=== PATIENT | male | born 1955 | race Caucasian/White ===

== ENCOUNTER 2019-05-26 13:54 | Inpatient (IN) ==
[2019-05-26] MEDS ORDERED: 0.9 % SODIUM CHLORIDE 1,000 ML IV ONE (14:28)
[2019-05-26] MEDS ORDERED: methylPREDNISolone SOD SUCC 125 MG/2 ML VIAL IV ONE (14:28)
[2019-05-26] MEDS ORDERED: ALBUTEROL SULFATE 200 PUFF INHALER INH PRN (14:30)
--- NOTE | 2019-05-26 14:57 | XRay Report ---
INDICATION: SOB TECHNIQUE: AP chest x-ray COMPARISON: Previous chest x-rays dated 11/24/2018, 12/01/2017. Previous chest CT scan dated 04/22/2015 FINDINGS: Lungs:Severe emphysema. Innumerable small calcifications consistent with old granulomatous disease. No new pulmonary parenchymal infiltrate or mass. No significant interval change Heart, vascular:No significant cardiomegaly. Central pulmonary arteries are prominent consistent with pulmonary arterial hypertension. No pulmonary edema or pulmonary congestion Mediastinum, esperanza:No mediastinal widening. No hilar mass Pleura:Blunting of the costophrenic angles consistent with hyperexpansion. No evidence for pleural fluid IMPRESSION: 1. Severe emphysema 2. Old granulomatous disease 3. No acute abnormality Interpreted and Authenticated by: Federico Mayfield 05/26/19
[2019-05-26 15:29] LABS: Basophils # (Auto) 0.12 K/mcL (0.00-0.30); Basophils % (Auto) 1.5 % (0.0-2.0); Eosinophils # (Auto) 0.68 K/mcL (0.00-0.70); Eosinophils % (Auto) 8.7 % (0.0-7.0); Granulocytes % (Auto) 65.7 % (38.0-78.0); Hematocrit 38.7 % (40.1-51.0); Hemoglobin 12.9 g/dL (13.7-17.5); Lymphocytes % (Auto) 15.4 % (15.5-49.0); Mean Corpuscular HGB Conc 33.3 g/dL (31.0-36.0); Monocytes # (Auto) 0.68 K/mcL (0.10-0.90); Monocytes % (Auto) 8.7 % (1.0-12.0); Platelet Count 347 K/mcL (140-440); RBC 3.99 M/mcL (4.63-6.08); Red Cell Distribution Width 12.2 % (11.5-14.5); WBC 7.8 K/mcL (4.50-11.00)
--- NOTE | 2019-05-26 15:39 | Emergency Department Note ---
SOB HPI - General Chief Complaint: Shortness of Breath/Dyspnea Stated Complaint: Short of breath Time Seen by Provider: 05/26/19 14:01 Source: patient Mode of arrival: wheelchair Limitations: no limitations - History of Present Illness 64-year-old male with known COPD on oxygen chronically comes in for shortness of breath-this is been going on for 6 months or more but the last couple of weeks have been relatively severe. He denies fever diarrhea. He is able to urinate well without difficulty. No abdominal pain but he does note some twinges of chest pain from time to time he is having those today as well. He uses 2 to 3 L nasal cannula oxygen [id number]. - Related Data Previous Rx's Medication Instructions Recorded Albuterol Sulfate [Proair Hfa] 2 puff IH Q4-6HP PRN #1 [email or web address] 04/22/15 Allergies Allergy/AdvReac Type Severity Reaction Status Date / Time No Known Drug Allergies Allergy Verified 05/26/19 13:54 Review of Systems All systems ED: reviewed and negative except as stated. Past Medical History - Past Medical History Attestation: Yes: The following information was validated with the patient. 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 Normocephalic atraumatic. Conjunctive are clear sclerae white nonicteric. No nasal discharge or congestion. Oropharynx pink with dry buccal mucosa-he is a mouth breather and is using nasal cannula oxygen into his mouth . Posterior pharynx is clear. Neck is supple without lymphadenopathy or thyromegaly. Heart is regular rate and rhythm no murmur appreciated. Lungs are basically clear to auscultation bilaterally but he does have significant end expiratory wheezes as well as scattered rhonchi. The right side is worse than the left. He cannot speak in full sentences secondary to ayaan rtness of breath. Abdomen is soft nontender nondistended. No pedal edema. +2 radial pulse. Limitations: no limitations Course Vital Signs Temperature 97.7 F 05/26/19 13:54 Pulse Rate 87 05/26/19 13:54 Respiratory Rate 26 H 05/26/19 13:54 Blood Pressure 151/99 05/26/19 13:54 Pulse Oximetry (%) 100 05/26/19 13:54 Temperature 97.7 F 05/26/19 13:54 Pulse Rate 84 05/26/19 17:02 Respiratory Rate 18 05/26/19 15:06 Blood Pressure 132/83 05/26/19 17:02 Pulse Oximetry (%) 94 05/26/19 17:02 Shortness of Breath/Dyspnea - Lab Data Lab results reviewed: Yes I reviewed the patient's lab results. Result diagrams: 05/26/19 14:55 05/26/19 15:46 Lab Results 05/26/19 05/26/19 05/26/19 Range/Units 14:55 14:55 14:55 WBC 7.8 (4.50-11.00) K/mcL RBC 3.99 L (4.63-6.08) M/mcL Hgb 12.9 L (13.7-17.5) g/dL Hct 38.7 L (40.1-51.0) % MCV 97.0 (80.0-100.0) fL MCH 32.3 (26.0-34.0) pg MCHC 33.3 (31.0-36.0) g/dL RDW 12.2 (11.5-14.5) % Plt Count 347 (140-440) K/mcL MPV 9.0 (7.4-10.4) fL Gran % 65.7 (38.0-78.0) % Lymph % (Auto) 15.4 L (15.5-49.0) % [place] % (Auto) 8.7 (1.0-12.0) % Eos % (Auto) 8.7 H (0.0-7.0) % Baso % (Auto) 1.5 (0.0-2.0) % Gran # 5.12 (1.80-8.00) K/mcL Lymph # (Auto) 1.20 L (1.50-4.80) K/mcL [place] # (Auto) 0.68 (0.10-0.90) K/mcL Eos # (Auto) 0.68 (0.00-0.70) K/mcL Baso # (Auto) 0.12 (0.00-0.30) K/mcL VBG Lactic Acid (0.5-2.0) mmol/L Sodium TNP Potassium TNP Chloride TNP Carbon Dioxide TNP Anion Gap TNP BUN TNP Creatinine TNP GFR Calculation TNP Glucose TNP Calcium TNP Magnesium TNP Total Bilirubin TNP AST TNP ALT TNP Alkaline Phosphatase TNP Troponin T (0-0.03) ng/ml NT-Pro-B Natriuret Pep TNP Total Protein TNP Albumin TNP Globulin TNP Albumin/Globulin Ratio TNP Lipase TNP Procalcitonin 0.04 (<0.10) ng/mL 05/26/19 05/26/19 05/26/19 Range/Units 14:55 14:55 15:46 WBC (4.50-11.00) K/mcL RBC (4.63-6.08) M/mcL Hgb (13.7-17.5) g/dL Hct (40.1-51.0) % MCV (80.0-100.0) fL MCH (26.0-34.0) pg MCHC (31.0-36.0) g/dL RDW (11.5-14.5) % Plt Count (140-440) K/mcL MPV (7.4-10.4) fL Gran % (38.0-78.0) % Lymph % (Auto) (15.5-49.0) % [place] % (Auto) (1.0-12.0) % Eos % (Auto) (0.0-7.0) % Baso % (Auto) (0.0-2.0) % Gran # (1.80-8.00) K/mcL Lymph # (Auto) (1.50-4.80) K/mcL [place] # (Auto) (0.10-0.90) K/mcL Eos # (Auto) (0.00-0.70) K/mcL Baso # (Auto) (0.00-0.30) K/mcL VBG Lactic Acid 1.0 (0.5-2.0) mmol/L Sodium 134 Potassium 5.1 Chloride 92 L Carbon Dioxide 27 Anion Gap 15.0 BUN 6 L Creatinine 0.6 L GFR Calculation 106 Glucose 116 H Calcium 8.6 Magnesium 1.6 Total Bilirubin 0.3 AST 26 ALT 14 Alkaline Phosphatase 53 Troponin T < 0.01 (0-0.03) ng/ml NT-Pro-B Natriuret Pep TNP Total Protein 7.2 Albumin 4.1 Globulin 3.1 Albumin/Globulin Ratio 1.3 Lipase 14 Procalcitonin (<0.10) ng/mL ABG shows pH of 7.33 PCO2 of 81-it is unclear how much of this is chronic as I do not have a comparison Urinalysis [id number] dipstick shows specific gravity 1.020 with a small amount of blood in the urine but otherwise normal - Radiology Data Radiology results reviewed: Yes I reviewed the patient's radiology results. X-ray shows severe COPD stigmata but no acute findings Disposition Pt seen by MANAGER PRIVACY/PA only: No Clinical Impression: Acute exacerbation of chronic obstructive airways disease, Acute respiratory acidosis Summary: Likely COPD exacerbation from unclear trigger. Could be COVID virus -order testing along with respiratory panel. Basic laboratory and x-ray use inhalers with albuterol. Start Solu-Medrol and IV fluid. Chest x-ray is unrevealing except for severe COPD. ABG shows respiratory acidosis with hypercapnia likely secondary to COPD exacerbation. We ordered BiPAP but because of concern for aerosol we are going to try Vapotherm first. At this time his chest x-ray is clear and he does not have a fever so COVID is less likely but still a possibility Laboratory does not show a leukocytosis, lactic acidosis or levator procalcitonin. Likely this is COPD exacerbation plus or minus respiratory virus. He is very short of breath will likely require hospitalization. The Vapotherm helped him tremendously and he was able to breathe much better- however he still requires hospitalization as he is really struggling to breathe without the Vapotherm. I discussed the case with Dr. Rabago , our hospitalist who agreed except the patient for further care and evaluation in the hospital. Nasopharyngeal swabs and COVID testing were pending at the time of admission Disposition: Xfer As Inpt ([facility]) Condition: Fair
[2019-05-26 17:08] LABS: ALT/SGPT 14 U/l (0-40); AST/SGOT 26 U/l (0-37); Albumin 4.1 gm/dL (3.2-5.2); Albumin/Globulin Ratio 1.3 (1.0-2.3); Alkaline Phosphatase 53 U/L (39-117); Bilirubin,Total 0.3 mg/dL (0.0-1.0); Blood Urea Nitrogen 6 mg/dl (8-23); Carbon Dioxide 27 mmol/L (22-30); Globulin 3.1 gm/dL (2.2-3.7); Glomerular Filtration Rate 106; Glucose 116 mg/dL (70-105)
[2019-05-26 17:10] LABS: Calcium 8.6 mg/dl (8.6-10.4); Chloride 92 mmol/L (96-108)
--- NOTE | 2019-05-26 18:00 | Internal Med History&Physical ---
Medical - H&P: HPI Patient information: Note initiated : 05/26/19 at 5:57 pm Service Date, if different from initiated Date: [] Patient: Franky Seymour 64 y/o M admitted on for SOB . Chief Complaint: [] History of present illness: Mr. Seymour is a 64 year old M Who presents with shortness of breath acute on chronic which is been worsening with past week. He has a productive cough of yellow sputum. Occasional head aches and sweats but denies fever. No sore throat or body aches. In the ED was evaluated with a chest x-ray which was negative. White blood cell count within normal limits. He is afebrile. Arterial blood gas showed respiratory acidosis. His lactate and procalcitonin are unremarkable as well as his troponin. Given his mild respiratory acidosis he was considered for BiPAP however with the concerns over the coronavirus there is opted to try Vapotherm first. Patient seems to be doing well on the Vapotherm. We will follow-up ABG and determine whether or not he needs BiPAP. Does not meet any obvious criteria for the COVID so if he needs BiPAP would rather institute that then go to drastic measures of intubation. Review of Systems: Pertinent positives as above. Denies headache/fever/ chills/nausea/vomiting/chest or abdominal pain//diarrhea. Remaining 10 point review of system reviewed negative Medical - H&P: PMH Medical history: Medical History Joint pain (Chronic) Muscle pain (Chronic) Asthma (Chronic) Arthritis (Chronic) Emphysema/COPD (Chronic) COPD exacerbation (Chronic) Past Surgical History History of tooth extraction (Chronic) Family History Mother Malignant neoplasm of lung Father had COPD Social History Patient has cut down his cigarettes significantly over time. He still smokes about 3 cigarettes/week. Patient drinks 2 times per week. Is at home with family. Medical - H&P: Meds Home Medications Medication Instructions Recorded Confirmed Type Albuterol Sulfate [Proair Hfa] 2 puff IH Q4-6HP PRN #1 hfa.aer.ad 04/22/15 05/26/19 Rx Allergies Allergy/AdvReac Type Severity Reaction Status Date / Time No Known Drug Allergies Allergy Verified 05/26/19 13:54 Medical - H&P: Exam - Constitutional Vitals: Temp Pulse Resp BP Pulse Ox 97.7 F 84 18 132/83 94 05/26/19 13:54 05/26/19 17:02 05/26/19 15:06 05/26/19 17:02 05/26/19 17:02 Exam: General: Alert, Awake, No acute Distress Eyes/N/T: EOMI, PERRL, Head/Neck: neck supple, normocephalic atraumatic CV: RRR, No murmurs, normal s1/s2 Pulm: Significantly diminshed b/l, moderate exp wheezing b/l. [place] puffer morphology. Abd: soft, nontender, +BS x4 Ext: no clubbing/cyanosis/edema Neuro: Alert, no focal deficits, moves all extremities, CN 2-12 grossly intact, symmetrical strength b/l upper/lower, sensations intact b/l upper/lower Skin: warm/dry Medical - H&P: Reslt - Labs CBC & Chem 7: 05/26/19 14:55 05/26/19 15:46 Labs: Short CBC 05/26/19 Range/Units 14:55 WBC 7.8 (4.50-11.00) K/mcL Hgb 12.9 L (13.7-17.5) g/dL Hct 38.7 L (40.1-51.0) % Plt Count 347 (140-440) K/mcL BMP 05/26/19 05/26/19 14:55 15:46 Sodium TNP 134 Potassium TNP 5.1 Chloride TNP 92 L Carbon Dioxide TNP 27 BUN TNP 6 L Creatinine TNP 0.6 L Glucose TNP 116 H Calcium TNP 8.6 Cardiac Enzymes 05/26/19 Range/Units 14:55 Troponin T < 0.01 (0-0.03) ng/ml Liver Function 05/26/19 05/26/19 Range/Units 14:55 15:46 Total Bilirubin TNP 0.3 AST TNP 26 ALT TNP 14 Alkaline Phosphatase TNP 53 Albumin TNP 4.1 Medical - H&P: A/P - Narrative A/P Narrative: A: *AECOPD (2L NC @home): *Acute hypercapnic respiratory failure /respiratory acidosis: 2/2 above * P: -Follow-up ABG, on vapotherm, bipap if needed -Steroids (wean), nebs/RT -IS/Acapella -RVP pending - - -Follow-up with pulmonology outpatient -ppx: Lovenox DNR
[2019-05-26] MEDS ORDERED: ACETAMINOPHEN 325 MG TABLET PO PRN (19:20)
[2019-05-26] MEDS ORDERED: IPRATROPIUM/ALBUTEROL 3 ML AMPUL.NEB NEB SCH (19:20)
[2019-05-26] MEDS ORDERED: MAGNESIUM SULFATE 2 GM/50 ML BAG IV PRN (19:20)
[2019-05-26] MEDS ORDERED: IPRATROPIUM/ALBUTEROL 3 ML AMPUL.NEB NEB PRN (19:20)
[2019-05-26] MEDS ORDERED: POTASSIUM CHLORIDE 40 MEQ in DEXTROSE 5% IN WATER 500 ML IV PRN (19:20)
[2019-05-26] MEDS ORDERED: POTASSIUM CHLORIDE 20 MEQ TABLET PO PRN ×2 (19:20)
[2019-05-26] MEDS ORDERED: ONDANSETRON 4 MG/2 ML VIAL IV PRN (19:20)
[2019-05-26] MEDS: AZITHROMYCIN 500 MG in DEXTROSE 5% IN WATER 250 ML IV SCH (20:24)
[2019-05-26] MEDS: ALBUTEROL SULFATE 200 PUFF INHALER INH SCH (20:41)
[2019-05-26] MEDS: 0.9 % SODIUM CHLORIDE 10 ML SYRINGE IV SCH (20:42)
[2019-05-26] MEDS: FAMOTIDINE 20 MG TABLET PO SCH (20:42)
[2019-05-26] MEDS ORDERED: IPRATROPIUM/ALBUTEROL SULFATE 1 PUFF INHALER INH SCH (21:00)
[2019-05-26] MEDS: methylPREDNISolone SOD SUCC 125 MG/2 ML VIAL IV SCH (21:58)
[2019-05-27] MEDS: methylPREDNISolone SOD SUCC 125 MG/2 ML VIAL IV SCH ×3 (05:47→20:18)
[2019-05-27] MEDS: 0.9 % SODIUM CHLORIDE 10 ML SYRINGE IV SCH ×3 (05:47→20:19)
[2019-05-27 07:00] LABS: ALT/SGPT 13 U/l (0-40); AST/SGOT 19 U/l (0-37); Albumin/Globulin Ratio 1.4 (1.0-2.3); Alkaline Phosphatase 53 U/L (39-117); Bilirubin,Direct < 0.2 mg/dL (0.0-0.3); Bilirubin,Total 0.3 mg/dL (0.0-1.0); Calcium 8.8 mg/dl (8.6-10.4); Carbon Dioxide 32 mmol/L (22-30); Globulin 2.9 gm/dL (2.2-3.7); Glomerular Filtration Rate 106; Glucose 148 mg/dL (70-105); Lactate Dehydrogenase 180 U/L (94-250); Phosphorous 3.8 mg/dL (2.7-4.5); Triglycerides 40 mg/dl (<150); Uric Acid 3.6 mg/dL (2.5-8.0)
[2019-05-27 07:20] LABS: Blood Urea Nitrogen 9 mg/dl (8-23); Chloride 92 mmol/L (96-108)
--- NOTE | 2019-05-27 08:05 | Internal Med Progress Note ---
Medical - PN: Subj Patient information: Note initiated : 05/27/19 at 7:59 am Service Date, if different from initiated Date: [] Patient: Franky Seymour a 64 y/o M admitted on 05/26/19 for SOB . Chief Complaint: [] Interval history: Mr. Seymour is a 64 year old M Who presents with shortness of breath acute on chronic which is been worsening with past week. He has a productive cough of yellow sputum. Occasional heada ches and sweats but denies fever. No sore throat or body aches. In the ED was evaluated with a chest x-ray which was negative. White blood cell count within normal limits. He is afebrile. Arterial blood gas showed respiratory acidosis. His lactate and procalcitonin are unremarkable as well as his troponin. Given his mild respiratory acidosis he was considered for BiPAP however with the concerns over the coronavirus there is opted to try Vapotherm first. Patient seems to be doing well on the Vapotherm. We will follow-up ABG and determine whether or not he needs BiPAP. Does not meet any obvious criteria for the COVID so if he needs BiPAP would rather institute that then go to drastic measures of intubation. 05/26 Feeling better this morning. Has productive cough still. No shortness of breath while at rest in bed. Weaning down Vapotherm flow rate. Review of Systems: denies headache/fever/chills/nausea/vomiting/chest or abdominal pain/diarrhea. Otherwise see above. - Constitutional Vitals: Vital Signs Temp Pulse Resp BP Pulse Ox 98.6 F 57 L 13 108/72 96 05/27/19 04:00 05/27/19 04:00 05/27/19 04:00 05/27/19 04:00 05/27/19 04:00 Period Temp Pulse Resp BP Sys/Martel Pulse Ox Last 24 Hr 97.7 F-99.6 F 57-94 11-26 105-155/67-99 94-100 Intake and Output 05/26/19 05/27/19 05/27/19 21:59 05:59 13:59 Intake Total 1000 350 Output Total 450 Balance 1000 -100 Weight 58.105 kg Intake & Output: Intake & Output 05/26/19 05/27/19 05/27/19 21:59 05:59 13:59 Intake Total 1000 350 Output Total 450 Balance 1000 -100 Weight 58.105 kg Intake: IV 1000 50 Sodium Chloride 0.9% 1,000 ml @ 1000 Wide Open IV .Q0M ONE Rx#: [id number] Oral 300 Output: Void Amount 450 Other: Meal Nourishment/Supplement Percent of Meal Consumed 100% Feeding Ability Assist with Tray Set Up Nourishment/Supplement name chicken and crackers Urine Appearance Clear Urine Color Dark Yellow Exam: General: Alert, Awake, No acute Distress Eyes/N/T: EOMI, Head/Neck: neck supple, CV: RRR, No murmurs, Pulm: diminshed b/l, improving exp wheezing b/l. [place] puffer morphology. Abd: soft, nontender, +BS x4 Ext: no clubbing/cyanosis/edema Neuro: Alert, no focal deficits, moves all extremities, Skin: warm/dry Medical - PN: Obj Da - Labs CBC & Chem 7: 05/26/19 14:55 05/27/19 05:20 Labs: Abnormal Lab Results 05/27/19 05/26/19 05/26/19 05:20 15:46 14:55 RBC 3.99 L Hgb 12.9 L Hct 38.7 L Lymph % (Auto) 15.4 L Eos % (Auto) 8.7 H Lymph # (Auto) 1.20 L Chloride 92 L 92 L Carbon Dioxide 32 H BUN 6 L Creatinine 0.6 L 0.6 L Glucose 148 H 116 H Meds: Medications Acetaminophen (Tylenol) 650 mg PO Q6HP PRN PRN Reason: PAIN/FEVER > 101 Albuterol Sulfate (Ventolin) 2 puff INH QID [facility] Last Admin: 05/26/19 20:41 Dose: 2 puff Documented by: Enoxaparin Sodium (Lovenox) 40 mg SQ DAILY [facility] Famotidine (Pepcid) 20 mg PO BID [facility] Last Admin: 05/26/19 20:42 Dose: 20 mg Documented by: Potassium Chloride 40 meq/ (Dextrose) 520 mls @ 130 mls/hr IV UD PRN PRN Reason: Potassium < 3 Magnesium Sulfate (Magnesium Sulfate) 2 gm in 50 mls @ 50 mls/hr IV UD PRN PRN Reason: Magnesium </= 1.6 Last Infusion: 05/26/19 23:01 Dose: Infused Documented by: Azithromycin 500 mg/ Dextrose 250 mls @ 250 mls/hr IV DAILY [facility]; Protocol Stop: 05/28/19 09:59 Last Admin: 05/26/19 20:24 Dose: 250 mls/hr Documented by: Methylprednisolone Sodium Succinate (Solu-Medrol) 80 mg IV Q8 [facility] Last Admin: 05/27/19 05:47 Dose: 80 mg Documented by: Ondansetron HCl (Zofran) 4 mg IV Q4HP PRN PRN Reason: Nausea And Vomiting Polyethylene Glycol (Miralax) 17 gm PO DAILYP PRN PRN Reason: Constipation Potassium Chloride (Kdur) 40 meq PO UD PRN PRN Reason: Potssium is 3-3.5 Potassium Chloride (Kdur) 40 meq PO UD PRN PRN Reason: Potassium < 3 Senna (Senokot) 2 tab PO DAILYP PRN PRN Reason: Constipation Sodium Chloride (Saline Flush) 10 ml IV Q8 [facility] Last Admin: 05/27/19 05:47 Dose: 10 ml Documented by: Medical - PN: A/P - Time Spent With Patient Total time spent is greater than 50% in coordination of care (as documented) at patient's floor/unit and/or counseling patient: - Narrative A/P Narrative: A: *AECOPD (2L NC @home): -RVP/PCT negative *Acute hypercapnic respiratory failure /respiratory acidosis: 2/2 above -on HiFlow NC, weaning down flow rate P: -on vapotherm wean off, bipap if needed -Steroids (wean), nebs/RT -IS/Acapella - -Follow-up with pulmonology outpatient -ppx: Lovenox DNR Medical - PN: Qual - VTE Deep Vein Thrombosis/Pulmonary Embolism Present on Admission: No
[2019-05-27] MEDS: ALBUTEROL SULFATE 200 PUFF INHALER INH SCH ×4 (09:30→20:19)
[2019-05-27] MEDS: ENOXAPARIN 40 MG/0.4 ML SYRINGE SQ SCH (09:30)
[2019-05-27] MEDS: FAMOTIDINE 20 MG TABLET PO SCH ×2 (09:30→20:18)
[2019-05-27] MEDS: AZITHROMYCIN 500 MG in DEXTROSE 5% IN WATER 250 ML IV SCH (14:14)
[2019-05-28] MEDS: 0.9 % SODIUM CHLORIDE 10 ML SYRINGE IV SCH ×3 (05:14→20:44)
[2019-05-28 06:53] LABS: ALT/SGPT 12 U/l (0-40); AST/SGOT 17 U/l (0-37); Albumin 3.8 gm/dL (3.2-5.2); Albumin/Globulin Ratio 1.3 (1.0-2.3); Alkaline Phosphatase 50 U/L (39-117); Bilirubin,Direct < 0.2 mg/dL (0.0-0.3); Bilirubin,Total 0.4 mg/dL (0.0-1.0); Blood Urea Nitrogen 12 mg/dl (8-23); Calcium 8.8 mg/dl (8.6-10.4); Carbon Dioxide 31 mmol/L (22-30); Globulin 2.9 gm/dL (2.2-3.7); Glomerular Filtration Rate 115; Glucose 127 mg/dL (70-105); Lactate Dehydrogenase 147 U/L (94-250); Phosphorous 4.4 mg/dL (2.7-4.5); Triglycerides 53 mg/dl (<150)
[2019-05-28 06:55] LABS: Chloride 91 mmol/L (96-108); Uric Acid 2.4 mg/dL (2.5-8.0)
--- NOTE | 2019-05-28 08:03 | Internal Med Progress Note ---
Medical - PN: Subj Patient information: Note initiated : 05/28/19 at 8:01 am Service Date, if different from initiated Date: [] Patient: Franky Seymour 64 y/o M admitted on 05/26/19 for SOB . Chief Complaint: [] Interval history: Mr. Seymour is a 64 year old M Who presents with shortness of breath acute on chronic which is been worsening with past week. He has a productive cough of yellow sputum. Occasional heada ches and sweats but denies fever. No sore throat or body aches. In the ED was evaluated with a chest x-ray which was negative. White blood cell count within normal limits. He is afebrile. Arterial blood gas showed respiratory acidosis. His lactate and procalcitonin are unremarkable as well as his troponin. Given his mild respiratory acidosis he was considered for BiPAP however with the concerns over the coronavirus there is opted to try Vapotherm first. Patient seems to be doing well on the Vapotherm. We will follow-up ABG and determine whether or not he needs BiPAP. Does not meet any obvious criteria for the COVID so if he needs BiPAP would rather institute that then go to drastic measures of intubation. 05/26 Feeling better this morning. Has productive cough still. No shortness of breath while at rest in bed. Weaning down Vapotherm flow rate. 05/27 Slept okay. Continued cough. Shortness of breath still present but slowly improving. Now on nasal cannula. Review of Systems: denies headache/fever/chills/nausea/vomiting/chest or abdominal pain/diarrhea. Otherwise see above. - Constitutional Vitals: Vital Signs Temp Pulse Resp BP Pulse Ox 98.9 F 78 12 90/55 94 05/28/19 04:00 05/27/19 08:00 05/28/19 04:00 05/28/19 04:00 05/28/19 04:00 Period Temp Pulse Resp BP Sys/Martel Pulse Ox Last 24 Hr 98.7 F-99.5 F 11-22 90-131/53-83 92-100 Intake and Output 05/27/19 05/28/19 05/28/19 21:59 05:59 13:59 Intake Total 1090 240 Output Total 875 950 Balance 215 -710 Weight 60.328 kg Intake & Output: Intake & Output 05/27/19 05/28/19 05/28/19 21:59 05:59 13:59 Intake Total 1090 240 Output Total 875 950 Balance 215 -710 Weight 60.328 kg Intake: IV 250 Zithromax 500 mg In Dextrose 5% 250 in Water 250 ml @ 250 mls/hr IV DAILY [facility] Rx#:[id number] Oral 840 240 Output: Void Amount 875 950 Other: Meal Lunch Percent of Meal Consumed 100% Feeding Ability Independent Urine Appearance Clear Clear Urine Color Bright Yellow Bright Yellow Urine Odor Normal Exam: General: Alert, Awake, No acute Distress Eyes/N/T: EOMI, Head/Neck: neck supple, CV: RRR, No murmurs, Pulm: diminshed b/l, mild exp wheezing b/l. [place] puffer morphology. Abd: soft, nontender, +BS x4 Ext: no clubbing/cyanosis/edema Neuro: Alert, no focal deficits, moves all extremities, Skin: warm/dry Medical - PN: Obj Da - Labs CBC & Chem 7: 05/26/19 14:55 05/28/19 05:25 Labs: Abnormal Lab Results 05/28/19 05/27/19 05/26/19 05:25 05:20 15:46 RBC Hgb Hct Lymph % (Auto) Eos % (Auto) Lymph # (Auto) Chloride 91 L 92 L 92 L Carbon Dioxide 31 H 32 H BUN 6 L Creatinine 0.5 L 0.6 L 0.6 L Glucose 127 H 148 H 116 H Uric Acid 2.4 L 05/26/19 14:55 RBC 3.99 L Hgb 12.9 L Hct 38.7 L Lymph % (Auto) 15.4 L Eos % (Auto) 8.7 H Lymph # (Auto) 1.20 L Chloride Carbon Dioxide BUN Creatinine Glucose Uric Acid Meds: Medications Acetaminophen (Tylenol) 650 mg PO Q6HP PRN PRN Reason: PAIN/FEVER > 101 Albuterol Sulfate (Ventolin) 2 puff INH QID [facility] Last Admin: 05/27/19 20:19 Dose: 2 puff Documented by: Enoxaparin Sodium (Lovenox) 40 mg SQ DAILY [facility] Last Admin: 05/27/19 09:30 Dose: 40 mg Documented by: Famotidine (Pepcid) 20 mg PO BID [facility] Last Admin: 05/27/19 20:18 Dose: 20 mg Documented by: Potassium Chloride 40 meq/ (Dextrose) 520 mls @ 130 mls/hr IV UD PRN PRN Reason: Potassium < 3 Magnesium Sulfate (Magnesium Sulfate) 2 gm in 50 mls @ 50 mls/hr IV UD PRN PRN Reason: Magnesium </= 1.6 Last Infusion: 05/26/19 23:01 Dose: Infused Documented by: Azithromycin 500 mg/ Dextrose 250 mls @ 250 mls/hr IV DAILY [facility]; Protocol Stop: 05/28/19 09:59 Last Infusion: 05/27/19 15:15 Dose: Infused Documented by: Methylprednisolone Sodium Succinate (Solu-Medrol) 40 mg IV BID [facility] Last Admin: 05/27/19 20:18 Dose: 40 mg Documented by: Ondansetron HCl (Zofran) 4 mg IV Q4HP PRN PRN Reason: Nausea And Vomiting Polyethylene Glycol (Miralax) 17 gm PO DAILYP PRN PRN Reason: Constipation Potassium Chloride (Kdur) 40 meq PO UD PRN PRN Reason: Potssium is 3-3.5 Potassium Chloride (Kdur) 40 meq PO UD PRN PRN Reason: Potassium < 3 Senna (Senokot) 2 tab PO DAILYP PRN PRN Reason: Constipation Sodium Chloride (Saline Flush) 10 ml IV Q8 [facility] Last Admin: 05/28/19 05:14 Dose: 10 ml Documented by: Medical - PN: A/P - Time Spent With Patient Total time spent is greater than 50% in coordination of care (as documented) at patient's floor/unit and/or counseling patient: - Narrative A/P Narrative: A: *AECOPD (2L NC @home): -RVP/PCT negative *Acute hypercapnic respiratory failure /respiratory acidosis: 2/2 above -now on NC P: -O2 supp, wean down -Steroids (wean), IH's/RT -IS/Acapella - -Follow-up with pulmonology outpatient -ppx: Lovenox DNR Medical - PN: Qual - VTE Deep Vein Thrombosis/Pulmonary Embolism Present on Admission: No
[2019-05-28] MEDS: FAMOTIDINE 20 MG TABLET PO SCH ×2 (08:28→20:44)
[2019-05-28] MEDS: methylPREDNISolone SOD SUCC 125 MG/2 ML VIAL IV SCH ×2 (08:29→20:44)
[2019-05-28] MEDS: ENOXAPARIN 40 MG/0.4 ML SYRINGE SQ SCH (08:29)
[2019-05-28] MEDS: AZITHROMYCIN 500 MG in DEXTROSE 5% IN WATER 250 ML IV SCH (08:38)
[2019-05-28] MEDS: ALBUTEROL SULFATE 200 PUFF INHALER INH SCH ×4 (08:41→20:50)
[2019-05-28] MEDS: POLYETHYLENE GLYCOL 3350 17 GM PACKET PO PRN (13:07)
[2019-05-28] MEDS: SENNOSIDES 1 TABLET PO PRN (22:58)
[2019-05-29] MEDS: 0.9 % SODIUM CHLORIDE 10 ML SYRINGE IV SCH ×3 (05:05→20:47)
--- NOTE | 2019-05-29 07:29 | Internal Med Progress Note ---
Medical - PN: Subj Patient information: Note initiated : 05/29/19 at 7:27 am Service Date, if different from initiated Date: [] Patient: Franky Seymour 64 y/o M admitted on 05/26/19 for SOB . Chief Complaint: [] Interval history: Mr. Seymour is a 64 year old M Who presents with shortness of breath acute on chronic which is been worsening with past week. He has a productive cough of yellow sputum. Occasional heada ches and sweats but denies fever. No sore throat or body aches. In the ED was evaluated with a chest x-ray which was negative. White blood cell count within normal limits. He is afebrile. Arterial blood gas showed respiratory acidosis. His lactate and procalcitonin are unremarkable as well as his troponin. Given his mild respiratory acidosis he was considered for BiPAP however with the concerns over the coronavirus there is opted to try Vapotherm first. Patient seems to be doing well on the Vapotherm. We will follow-up ABG and determine whether or not he needs BiPAP. Does not meet any obvious criteria for the COVID so if he needs BiPAP would rather institute that then go to drastic measures of intubation. 05/26 Feeling better this morning. Has productive cough still. No shortness of breath while at rest in bed. Weaning down Vapotherm flow rate. 05/27 Slept okay. Continued cough. Shortness of breath still present but slowly improving. Now on nasal cannula. 05/28 Cough decreasing. Shortness of breath slowly improving but not back to normal. At rest on 2 L of nasal oxygen as at home but desats with movement at times. Review of Systems: denies headache/fever/chills/nausea/vomiting/chest or abdominal pain/diarrhea. Otherwise see above. - Constitutional Vitals: Vital Signs Temp Pulse Resp BP Pulse Ox 98.0 F 84 13 103/65 96 05/29/19 04:01 05/28/19 20:14 05/29/19 04:43 05/29/19 04:01 05/29/19 04:43 Period Temp Pulse Resp BP Sys/Martel Pulse Ox Last 24 Hr 98.0 F-99.6 F 84 9-21 99-121/65-82 92-99 Intake and Output 05/28/19 05/29/19 05/29/19 21:59 05:59 13:59 Intake Total 840 480 Output Total 875 1175 Balance -35 -695 Weight 60.419 kg Intake & Output: Intake & Output 05/28/19 05/29/19 05/29/19 21:59 05:59 13:59 Intake Total 840 480 Output Total 875 1175 Balance -35 -695 Weight 60.419 kg Intake: Oral 840 480 Output: Void Amount 875 1175 Other: Urine Appearance Clear Clear Urine Color Dark Yellow Straw Urine Odor Normal Stool Size Smear Smear Stool Color Brown Brown Stool Consistency [place] # Bowel Movements 0 Exam: General: Alert, Awake, No acute Distress Eyes/N/T: EOMI, Head/Neck: neck supple, CV: RRR, No murmurs, Pulm: diminshed b/l but better aeration today, no wheezing b/l today. [place] puffer morphology. Abd: soft, nontender, +BS x4 Ext: no clubbing/cyanosis/edema Neuro: Alert, no focal deficits, moves all extremities, Skin: warm/dry Medical - PN: Obj Da - Labs CBC & Chem 7: 05/26/19 14:55 05/28/19 05:25 Labs: Abnormal Lab Results 05/28/19 05/27/19 05/26/19 05:25 05:20 15:46 RBC Hgb Hct Lymph % (Auto) Eos % (Auto) Lymph # (Auto) Chloride 91 L 92 L 92 L Carbon Dioxide 31 H 32 H BUN 6 L Creatinine 0.5 L 0.6 L 0.6 L Glucose 127 H 148 H 116 H Uric Acid 2.4 L 05/26/19 14:55 RBC 3.99 L Hgb 12.9 L Hct 38.7 L Lymph % (Auto) 15.4 L Eos % (Auto) 8.7 H Lymph # (Auto) 1.20 L Chloride Carbon Dioxide BUN Creatinine Glucose Uric Acid Meds: Medications Acetaminophen (Tylenol) 650 mg PO Q6HP PRN PRN Reason: PAIN/FEVER > 101 Albuterol Sulfate (Ventolin) 2 puff INH QID [facility] Last Admin: 05/28/19 20:50 Dose: 2 puff Documented by: Enoxaparin Sodium (Lovenox) 40 mg SQ DAILY [facility] Last Admin: 05/28/19 08:29 Dose: 40 mg Documented by: Famotidine (Pepcid) 20 mg PO BID [facility] Last Admin: 05/28/19 20:44 Dose: 20 mg Documented by: Potassium Chloride 40 meq/ (Dextrose) 520 mls @ 130 mls/hr IV UD PRN PRN Reason: Potassium < 3 Magnesium Sulfate (Magnesium Sulfate) 2 gm in 50 mls @ 50 mls/hr IV UD PRN PRN Reason: Magnesium </= 1.6 Last Infusion: 05/26/19 23:01 Dose: Infused Documented by: Methylprednisolone Sodium Succinate (Solu-Medrol) 40 mg IV BID [facility] Last Admin: 05/28/19 20:44 Dose: 40 mg Documented by: Ondansetron HCl (Zofran) 4 mg IV Q4HP PRN PRN Reason: Nausea And Vomiting Polyethylene Glycol (Miralax) 17 gm PO DAILYP PRN PRN Reason: Constipation Last Admin: 05/28/19 13:07 Dose: 17 gm Documented by: Potassium Chloride (Kdur) 40 meq PO UD PRN PRN Reason: Potssium is 3-3.5 Potassium Chloride (Kdur) 40 meq PO UD PRN PRN Reason: Potassium < 3 Senna (Senokot) 2 tab PO DAILYP PRN PRN Reason: Constipation Last Admin: 05/28/19 22:58 Dose: 2 tab Documented by: Sodium Chloride (Saline Flush) 10 ml IV Q8 [facility] Last Admin: 05/29/19 05:05 Dose: 10 ml Documented by: Medical - PN: A/P - Time Spent With Patient Total time spent is greater than 50% in coordination of care (as documented) at patient's floor/unit and/or counseling patient: - Narrative A/P Narrative: A: *AECOPD (2L NC @home): -RVP/PCT negative *Acute hypercapnic respiratory failure /respiratory acidosis: 2/2 above -now on 2L NC from [facility] in ED P: -O2 supp, wean down -Steroids (wean), IH's, Adavair added, -IS/Acapella -empiric abx -Follow-up with pulmonology outpatient -ppx: Lovenox DNR Medical - PN: Qual - VTE Deep Vein Thrombosis/Pulmonary Embolism Present on Admission: No
[2019-05-29] MEDS ORDERED: AZITHROMYCIN 500 MG in DEXTROSE 5% IN WATER 250 ML IV SCH (08:15)
[2019-05-29] MEDS: FAMOTIDINE 20 MG TABLET PO SCH ×2 (08:23→20:47)
[2019-05-29] MEDS: ALBUTEROL SULFATE 200 PUFF INHALER INH SCH ×4 (08:23→20:54)
[2019-05-29] MEDS: POLYETHYLENE GLYCOL 3350 17 GM PACKET PO PRN (08:24)
[2019-05-29] MEDS: ENOXAPARIN 40 MG/0.4 ML SYRINGE SQ SCH (08:24)
[2019-05-29] MEDS: methylPREDNISolone SOD SUCC 125 MG/2 ML VIAL IV SCH ×2 (08:24→20:47)
[2019-05-29] MEDS: FLUTICASONE/SALMETEROL 250/50 INHALER #14 INH SCH ×2 (09:15→20:53)
--- NOTE | 2019-05-29 15:26 | Discharge Summary ---
Medical - DS: Prov Patient information: Note initiated : 05/29/19 at 3:23 pm Service Date, if different from initiated Date: [] Patient: Franky Seymour 64 y/o M admitted on 05/26/19 for SOB . Chief Complaint: [] Date of admission: 05/26/19 19:00 Discharge date: 05/30/19 Consults: 05/26/19 Consult to Physician [CONS] Stat Comment: Consulting Provider: Brian Rabago Reason For Exam: Physician to Consult Medical - DS: Meds - Discharge Medications Prescriptions: Fluticasone/Salmeterol [Advair 250-50 Diskus] 1 puff INH BID #1 inhaler predniSONE [Prednisone] 10 mg PO QAMCC #1 tab Active and Home Medications: Home Medications Albuterol Sulfate [Proair Hfa] 2 puff IH Q4-6HP PRN #1 hfa.aer.ad 04/22/15 [Rx Confirmed 05/26/19 Last Taken 05/26/19 12:00] Home Medications Albuterol Sulfate [Proair Hfa] 2 puff IH Q4-6HP PRN #1 hfa.aer.ad 04/22/15 [Rx Confirmed 05/26/19 Last Taken 05/26/19 12:00] Fluticasone/Salmeterol [Advair 250-50 Diskus] 1 puff INH BID #1 inhaler 05/29/19 [Rx Last Taken Unknown] predniSONE [Prednisone] 10 mg PO QAMCC #1 tab 05/29/19 [Rx Last Taken Unknown] Medical - DS: Hosp Hospital Course: Mr. Seymour is a 64 year old M Who presents with shortness of breath acute on chronic which is been worsening with past week. He has a productive cough of yellow sputum. Occasional headaches and sweats but denies fever. No sore throat or body aches. In the ED was evaluated with a chest x-ray which was negative. White blood cell count within normal limits. He is afebrile. Arterial blood gas showed respiratory acidosis. His lactate and procalcitonin are unremarkable as well as his troponin. Given his mild respiratory acidosis he was considered for BiPAP however with the concerns over the coronavirus there is opted to try Vapotherm first. Patient seems to be doing well on the Vapotherm. We will follow-up ABG and determine whether or not he needs BiPAP. Does not meet any obvious criteria for the COVID so if he needs BiPAP would rather institute that then go to drastic measures of intubation. 05/26 Feeling better this morning. Has productive cough still. No shortness of breath while at rest in bed. Weaning down Vapotherm flow rate. 05/27 Slept okay. Continued cough. Shortness of breath still present but slowly improving. Now on nasal cannula. 05/28 Cough decreasing. Shortness of breath slowly improving but not back to normal. At rest on 2 L of nasal oxygen as at home but desats with movement at times. 05/29 Patient continued to feel better. Breathing continues to improve. He is satting 96% on 1 L. Moving around easier. We will go home on Advair and follow-up closely with pulmonology. Still pending COVID and discussed with him for attending. I have a low suspicion for this test being positive. A: *AECOPD (2L NC @home): -RVP/PCT negative *Acute hypercapnic respiratory failure /respiratory acidosis: 03/12 above -now on 2L NC from [facility] in ED Discharge diagnosis: Acute exacerbation COPD and likely worsening underlying lung tissue damage Secondary discharge diagnosis: Acute hypercapnic respiratory failure - Time Spent with Patient Total time spent providing and/or coordinating discharge services: Greater than 30 minutes Medical - DS: Exam - Constitutional Vitals: Vital Signs Temp Pulse Resp BP Pulse Ox 05/29/19 12:01 99.2 F H 16 102/71 95 05/29/19 08:00 99 F 17 129/87 96 05/29/19 04:43 13 96 05/29/19 04:01 98.0 F 14 103/65 97 05/29/19 00:12 18 96 05/29/19 00:09 95 05/29/19 00:00 98.3 F 14 114/70 96 05/28/19 20:34 15 94 05/28/19 20:14 84 05/28/19 20:00 99.6 F H 21 101/79 95 05/28/19 19:00 9 L 99/82 99 05/28/19 18:31 97 05/28/19 18:00 19 119/71 93 05/28/19 17:01 19 117/77 97 05/28/19 16:05 97 05/28/19 16:00 99.3 F H 11 L 114/75 98 Intake and Output 05/29/19 05/29/19 05/29/19 05:59 13:59 21:59 Intake Total 480 1234 Output Total 1175 750 Balance -695 484 Intake: Oral 480 1234 Output: Void Amount 1175 750 Other: Meal Breakfast Percent of Meal Consumed 100% Feeding Ability Independent Urine Appearance Clear Urine Color Straw Stool Size Smear Stool Color Brown Stool Consistency Marina Medical - DS: A/P - Patient/Caregiver Discharge Instructions Activity: increase activity as tolerated Diet: Regular Diet Additional Instructions: Referral to see ortho/prosthetic aide in 3 to 7 days--- A referral has been sent to Dr. Paez, they will contact you to schedule an appointment. Prescriptions: Fluticasone/Salmeterol [Advair 250-50 Diskus] 1 puff INH BID #1 inhaler predniSONE [Prednisone] 10 mg PO QAC #1 tab - Follow up Plan Follow up with: Glo Hunter, RD, LD, CD [Dietitian/Podiatric Technician] - Mario Paez MD [Physician] - Disposition: Home, Self-Care Care Plan Goals: This discharge packet is provided to you to help keep you informed about your care. We want to ensure you get everything you need when you go home. You will also be receiving a call from us in a few days to follow up with you and see how you are doing since your discharge. This gives us a chance to listen to any concerns you maybe experiencing since you were discharged or any additional needs you may have, as well as providing us feedback on your care experience. We strive to always provide excellent care and thank you for your feedback and for choosing [facility]. Prognosis: Undetermined Rehab Potential: Fair Overall status at discharge: patient is progressing back to baseline Medical - DS: Qual - VTE Deep Vein Thrombosis/Pulmonary Embolism Present on Admission: No
[2019-05-29] MEDS: SENNOSIDES 1 TABLET PO PRN (20:47)
[2019-05-30] MEDS: 0.9 % SODIUM CHLORIDE 10 ML SYRINGE IV SCH (05:04)
--- NOTE | 2019-05-30 07:43 | Internal Med Progress Note ---
Medical - PN: Subj Patient information: Note initiated : 05/30/19 at 7:42 am Service Date, if different from initiated Date: [] Patient: Franky Seymour 64 y/o M admitted on 05/26/19 for SOB . Chief Complaint: [] Interval history: Mr. Seymour is a 64 year old M Who presents with shortness of breath acute on chronic which is been worsening with past week. He has a productive cough of yellow sputum. Occasional heada ches and sweats but denies fever. No sore throat or body aches. In the ED was evaluated with a chest x-ray which was negative. White blood cell count within normal limits. He is afebrile. Arterial blood gas showed respiratory acidosis. His lactate and procalcitonin are unremarkable as well as his troponin. Given his mild respiratory acidosis he was considered for BiPAP however with the concerns over the coronavirus there is opted to try Vapotherm first. Patient seems to be doing well on the Vapotherm. We will follow-up ABG and determine whether or not he needs BiPAP. Does not meet any obvious criteria for the COVID so if he needs BiPAP would rather institute that then go to drastic measures of intubation. 05/26 Feeling better this morning. Has productive cough still. No shortness of breath while at rest in bed. Weaning down Vapotherm flow rate. 05/27 Slept okay. Continued cough. Shortness of breath still present but slowly improving. Now on nasal cannula. 05/28 Cough decreasing. Shortness of breath slowly improving but not back to normal. At rest on 2 L of nasal oxygen as at home but desats with movement at times. Review of Systems: denies headache/fever/chills/nausea/vomiting/chest or abdominal pain/diarrhea. Otherwise see above. - Constitutional Vitals: Vital Signs Temp Pulse Resp BP Pulse Ox 98.4 F 68 18 108/75 96 05/30/19 04:00 05/30/19 00:08 05/30/19 04:00 05/30/19 04:00 05/30/19 04:14 Period Temp Pulse Resp BP Sys/Martel Pulse Ox Last 24 Hr 98.4 F-99.4 F 68-73 16-22 102-131/71-87 94-99 Intake and Output 05/29/19 05/30/19 05/30/19 21:59 05:59 13:59 Intake Total 1440 880 Output Total 1250 2550 Balance 190 -1670 Weight 61.19 kg Intake & Output: Intake & Output 05/29/19 05/30/19 05/30/19 21:59 05:59 13:59 Intake Total 1440 880 Output Total 1250 2550 Balance 190 -1670 Weight 61.19 kg Intake: Oral 1440 880 Output: Urine Catheter Amount 500 Void Amount 1250 0 Other: Meal Dinner Percent of Meal Consumed 75% Feeding Ability Independent Urine Appearance Clear Clear Urine Color Dark Yellow Straw Exam: General: Alert, Awake, No acute Distress Eyes/N/T: EOMI, Head/Neck: neck supple, CV: RRR, No murmurs, Pulm: diminshed b/l but better aeration today, no wheezing b/l today. [place] puffer morphology. Abd: soft, nontender, +BS x4 Ext: no clubbing/cyanosis/edema Neuro: Alert, no focal deficits, moves all extremities, Skin: warm/dry Medical - PN: Obj Da - Labs CBC & Chem 7: 05/26/19 14:55 05/28/19 05:25 Labs: Abnormal Lab Results 05/28/19 05:25 Chloride 91 L Carbon Dioxide 31 H Creatinine 0.5 L Glucose 127 H Uric Acid 2.4 L Meds: Medications Acetaminophen (Tylenol) 650 mg PO Q6HP PRN PRN Reason: PAIN/FEVER > 101 Albuterol Sulfate (Ventolin) 2 puff INH QID [facility] Last Admin: 05/29/19 20:54 Dose: 2 puff Documented by: Enoxaparin Sodium (Lovenox) 40 mg SQ DAILY [facility] Last Admin: 05/29/19 08:24 Dose: 40 mg Documented by: Famotidine (Pepcid) 20 mg PO BID [facility] Last Admin: 05/29/19 20:47 Dose: 20 mg Documented by: Potassium Chloride 40 meq/ (Dextrose) 520 mls @ 130 mls/hr IV UD PRN PRN Reason: Potassium < 3 Magnesium Sulfate (Magnesium Sulfate) 2 gm in 50 mls @ 50 mls/hr IV UD PRN PRN Reason: Magnesium </= 1.6 Last Infusion: 05/26/19 23:01 Dose: Infused Documented by: Methylprednisolone Sodium Succinate (Solu-Medrol) 40 mg IV BID [facility] Last Admin: 05/29/19 20:47 Dose: 40 mg Documented by: Ondansetron HCl (Zofran) 4 mg IV Q4HP PRN PRN Reason: Nausea And Vomiting Polyethylene Glycol (Miralax) 17 gm PO DAILYP PRN PRN Reason: Constipation Last Admin: 05/29/19 08:24 Dose: 17 gm Documented by: Potassium Chloride (Kdur) 40 meq PO UD PRN PRN Reason: Potssium is 3-3.5 Potassium Chloride (Kdur) 40 meq PO UD PRN PRN Reason: Potassium < 3 Fluticasone/Salmeterol (Advair 250-50 Diskus) 1 puff INH BID [facility] Last Admin: 05/29/19 20:53 Dose: 1 puff Documented by: Senna (Senokot) 2 tab PO DAILYP PRN PRN Reason: Constipation Last Admin: 05/29/19 20:47 Dose: 2 tab Documented by: Sodium Chloride (Saline Flush) 10 ml IV Q8 [facility] Last Admin: 05/30/19 05:04 Dose: 10 ml Documented by: Medical - PN: A/P - Time Spent With Patient Total time spent is greater than 50% in coordination of care (as documented) at patient's floor/unit and/or counseling patient: - Narrative A/P Narrative: A: *AECOPD (2L NC @home): -RVP/PCT negative *Acute hypercapnic respiratory failure /respiratory acidosis: 2/2 above -now on 2L NC from [facility] in ED P: -O2 supp, wean down -Steroids (wean), IH's, Adavair added, -IS/Acapella -COVID pending -empiric abx -Follow-up with pulmonology outpatient -ppx: Lovenox DNR Medical - PN: Qual - VTE Deep Vein Thrombosis/Pulmonary Embolism Present on Admission: No
[2019-05-30] MEDS: FAMOTIDINE 20 MG TABLET PO SCH (08:09)
[2019-05-30] MEDS: methylPREDNISolone SOD SUCC 125 MG/2 ML VIAL IV SCH (08:09)
[2019-05-30] MEDS: FLUTICASONE/SALMETEROL 250/50 INHALER #14 INH SCH (08:10)
[2019-05-30] MEDS: ENOXAPARIN 40 MG/0.4 ML SYRINGE SQ SCH (08:10)
[2019-05-30] MEDS: ALBUTEROL SULFATE 200 PUFF INHALER INH SCH (08:10)
== END 2019-05-30 11:02 | disposition home or self-care (01) | DRG 190 ==
LOC: ED 13:54 → ICU 19:00
PROVIDERS: ADMIT Internal Medicine; ATTEND Internal Medicine

== ENCOUNTER 2023-02-05 08:21 | Inpatient (IN) ==
[2023-02-05] MEDS ORDERED: IOPAMIDOL 100 ML BOTTLE IV ONE (08:22)
[2023-02-05] MEDS ORDERED: 0.9 % SODIUM CHLORIDE 500 ML IV ONE (08:51)
[2023-02-05] MEDS ORDERED: methylPREDNISolone SOD SUCC 125 MG/2 ML VIAL IV ONE (09:13)
[2023-02-05] MEDS ORDERED: IPRATROPIUM/ALBUTEROL 3 ML AMPUL.NEB NEB ONE ×3 (09:13→11:58)
[2023-02-05 09:36] LABS: Blood Urea Nitrogen 17 mg/dL (8-23); Calcium 9.2 mg/dL (8.6-10.4); Carbon Dioxide 33 mmol/L (22-30); Chloride 91 mmol/L (96-108); Glomerular Filtration Rate 112; Glucose 113 mg/dL (70-105)
[2023-02-05 09:58] LABS: Basophils # (Auto) 0.01 K/mcL (0.00-0.30); Basophils % (Auto) 0.1 % (0.0-2.0); Eosinophils # (Auto) 0.05 K/mcL (0.00-0.70); Eosinophils % (Auto) 0.7 % (0.0-7.0); Hematocrit 40.8 % (40.1-51.0); Hemoglobin 13.5 g/dL (13.7-17.5); Lymphocytes % (Auto) 15.2 % (15.5-49.0); Mean Cell Volume 97.4 fL (80.0-100.0); Mean Corpuscular HGB Conc 33.1 g/dL (31.0-36.0); Mean Platelet Volume 9.2 fL (8.8-12.5); Monocytes # (Auto) 0.75 K/mcL (0.10-0.90); Monocytes % (Auto) 10.3 % (1.0-12.0); Neutrophils % (Auto) 73.4 % (38.0-78.0); Platelet Count 311 K/mcL (140-440); RBC 4.19 M/mcL (4.63-6.08); Red Cell Distribution Width 11.8 % (11.5-14.5)
[2023-02-05 10:59] LABS: WBC 7.3 K/mcL (4.5-11.0)
[2023-02-05] MEDS ORDERED: KETOROLAC 30 MG/ML VIAL IV ONE (11:09)
[2023-02-05] MEDS ORDERED: DEXAMETHASONE 10 MG/ML VIAL IV ONE (12:01)
[2023-02-05] MEDS ORDERED: ONDANSETRON 4 MG/2 ML VIAL IV PRN (12:41)
[2023-02-05] MEDS ORDERED: ONDANSETRON 4 MG ODT TABLET SL PRN (12:43)
[2023-02-05] MEDS ORDERED: SENNOSIDES 1 TABLET PO PRN (12:43)
[2023-02-05] MEDS ORDERED: MAGNESIUM HYDROXIDE 30 ML ORAL.SUSP PO PRN (12:43)
[2023-02-05] MEDS ORDERED: ONDANSETRON 4 MG/2 ML VIAL IV ONE (12:44)
[2023-02-05] MEDS ORDERED: LACTATED RINGERS 1,000 ML IV SCH (12:45)
[2023-02-05] MEDS: AZITHROMYCIN 500 MG in DEXTROSE 5% IN WATER 250 ML IV SCH (13:20)
[2023-02-05] MEDS: 0.9 % SODIUM CHLORIDE 10 ML SYRINGE IV SCH ×2 (14:50→21:19)
[2023-02-05] MEDS: cefTRIAXone 1 GM VIAL IV SCH (14:55)
[2023-02-05] MEDS: methylPREDNISolone SOD SUCC 40 MG/ML VIAL IV SCH ×2 (14:55→21:14)
[2023-02-05] MEDS: IPRATROPIUM/ALBUTEROL 3 ML AMPUL.NEB NEB SCH ×2 (15:12→19:59)
[2023-02-05] MEDS: ALBUTEROL SULFATE 60 PUFF INHALER INH PRN (18:06)
[2023-02-05 20:45] LABS: Appearance,Urine Clear (Clear); Bilirubin,Urine Negative (Negative); Color,Urine Yellow; Culture Indicated,Urine No; Glucose,Urine (UA) 100 mg/dL (Negative); Ketones,Urine 80 mg/dL (Negative); Leukocyte Esterase,Urine Negative /uL (Negative); Nitrate,Urine Negative (Negative); Protein,Urine Trace mg/dL (Negative); Urine Blood Trace ery/mcL (Negative); Urine RBC < 1 /hpf (0-3); Urine Squamous Epithelial Cell 0 /hpf (0-4); Urine WBC < 1 /hpf (0-4); Urobilinogen,Urine Normal
[2023-02-05] MEDS ORDERED: NIRMATRELVIR/RITONAVIR 1 EACH BOX PO SCH (21:00)
[2023-02-06] MEDS: ALBUTEROL SULFATE 60 PUFF INHALER INH PRN (05:17)
[2023-02-06] MEDS: methylPREDNISolone SOD SUCC 40 MG/ML VIAL IV SCH (05:17)
[2023-02-06] MEDS: 0.9 % SODIUM CHLORIDE 10 ML SYRINGE IV SCH ×3 (05:17→21:31)
[2023-02-06 06:22] LABS: Blood Urea Nitrogen 10 mg/dL (8-23); Carbon Dioxide 33 mmol/L (22-30); Chloride 89 mmol/L (96-108); Glomerular Filtration Rate 122; Glucose 139 mg/dL (70-105)
[2023-02-06 06:31] LABS: Hemoglobin 12.7 g/dL (13.7-17.5); Mean Cell Volume 92.9 fL (80.0-100.0); Mean Corpuscular HGB Conc 33.4 g/dL (31.0-36.0); Mean Platelet Volume 9.1 fL (8.8-12.5); Platelet Count 364 K/mcL (140-440); RBC 4.09 M/mcL (4.63-6.08); Red Cell Distribution Width 11.7 % (11.5-14.5); WBC 7.9 K/mcL (4.5-11.0)
[2023-02-06 07:46] LABS: Band Neutrophils % 1 % (0-10); Lymphocytes % 11 % (15-49); Monocytes % (Manual) 7 % (1-12); Platelet Estimate NORMAL (Normal); RBC Morphology NORMAL (Normal); Segmented Neutrophils % 81 % (38-78)
[2023-02-06] MEDS: ENOXAPARIN 40 MG/0.4 ML SYRINGE SQ SCH (09:10)
[2023-02-06] MEDS: AZITHROMYCIN 500 MG in DEXTROSE 5% IN WATER 250 ML IV SCH (09:10)
[2023-02-06] MEDS: IPRATROPIUM/ALBUTEROL 3 ML AMPUL.NEB NEB SCH ×3 (09:18→21:01)
[2023-02-06] MEDS: predniSONE 20 MG TABLET PO SCH (12:10)
[2023-02-06] MEDS: cefTRIAXone 1 GM VIAL IV SCH (12:11)
[2023-02-07] MEDS: ALBUTEROL SULFATE 60 PUFF INHALER INH PRN ×3 (04:09→14:12)
[2023-02-07] MEDS: 0.9 % SODIUM CHLORIDE 10 ML SYRINGE IV SCH ×3 (04:09→20:44)
[2023-02-07 06:45] LABS: Basophils # (Auto) 0.01 K/mcL (0.00-0.30); Basophils % (Auto) 0.1 % (0.0-2.0); Eosinophils # (Auto) 0.04 K/mcL (0.00-0.70); Eosinophils % (Auto) 0.4 % (0.0-7.0); Hematocrit 39.1 % (40.1-51.0); Hemoglobin 13.1 g/dL (13.7-17.5); Lymphocytes # (Auto) 1.45 K/mcL (1.50-4.80); Lymphocytes % (Auto) 14.2 % (15.5-49.0); Mean Cell Volume 95.6 fL (80.0-100.0); Mean Corpuscular HGB Conc 33.5 g/dL (31.0-36.0); Mean Platelet Volume 8.8 fL (8.8-12.5); Monocytes # (Auto) 1.08 K/mcL (0.10-0.90); Monocytes % (Auto) 10.6 % (1.0-12.0); Neutrophils % (Auto) 74.3 % (38.0-78.0); Platelet Count 387 K/mcL (140-440); RBC 4.09 M/mcL (4.63-6.08); Red Cell Distribution Width 11.7 % (11.5-14.5); WBC 10.2 K/mcL (4.5-11.0)
[2023-02-07 07:25] LABS: ALT/SGPT < 5 U/L (<40); AST/SGOT 18 U/L (<40); Albumin 3.5 gm/dL (3.2-5.2); Albumin/Globulin Ratio 1.1 (1.0-2.3); Alkaline Phosphatase 48 U/L (39-117); Bilirubin,Total 0.4 mg/dL (0.1-1.0); Blood Urea Nitrogen 14 mg/dL (8-23); Calcium 8.9 mg/dL (8.6-10.4); Carbon Dioxide 34 mmol/L (22-30); Chloride 90 mmol/L (96-108); Globulin 3.1 gm/dL (2.2-3.7); Glomerular Filtration Rate 112; Glucose 143 mg/dL (70-105)
[2023-02-07] MEDS: IPRATROPIUM/ALBUTEROL 3 ML AMPUL.NEB NEB SCH ×3 (07:42→20:59)
[2023-02-07] MEDS: predniSONE 20 MG TABLET PO SCH (08:33)
[2023-02-07] MEDS: ENOXAPARIN 40 MG/0.4 ML SYRINGE SQ SCH (08:34)
[2023-02-07] MEDS ORDERED: AZITHROMYCIN 250 MG TABLET PO SCH (09:00)
[2023-02-07] MEDS: cefTRIAXone 1 GM VIAL IV SCH (13:19)
[2023-02-08] MEDS: ALBUTEROL SULFATE 60 PUFF INHALER INH PRN (04:17)
[2023-02-08] MEDS: 0.9 % SODIUM CHLORIDE 10 ML SYRINGE IV SCH ×3 (05:26→20:05)
[2023-02-08 06:35] LABS: Basophils # (Auto) 0.01 K/mcL (0.00-0.30); Basophils % (Auto) 0.1 % (0.0-2.0); Eosinophils # (Auto) 0.09 K/mcL (0.00-0.70); Eosinophils % (Auto) 1.1 % (0.0-7.0); Hematocrit 38.9 % (40.1-51.0); Hemoglobin 13.1 g/dL (13.7-17.5); Lymphocytes # (Auto) 1.26 K/mcL (1.50-4.80); Mean Cell Volume 94.9 fL (80.0-100.0); Mean Corpuscular HGB Conc 33.7 g/dL (31.0-36.0); Monocytes # (Auto) 1.31 K/mcL (0.10-0.90); Monocytes % (Auto) 15.6 % (1.0-12.0); Neutrophils % (Auto) 67.2 % (38.0-78.0); Platelet Count 415 K/mcL (140-440); Red Cell Distribution Width 11.8 % (11.5-14.5); WBC 8.4 K/mcL (4.5-11.0)
[2023-02-08 07:07] LABS: ALT/SGPT < 5 U/L (<40); AST/SGOT 19 U/L (<40); Albumin 3.5 gm/dL (3.2-5.2); Albumin/Globulin Ratio 1.1 (1.0-2.3); Alkaline Phosphatase 51 U/L (39-117); Bilirubin,Total 0.5 mg/dL (0.1-1.0); Blood Urea Nitrogen 15 mg/dL (8-23); Calcium 8.8 mg/dL (8.6-10.4); Carbon Dioxide 36 mmol/L (22-30); Chloride 90 mmol/L (96-108); Globulin 3.1 gm/dL (2.2-3.7); Glomerular Filtration Rate 122; Glucose 102 mg/dL (70-105)
[2023-02-08] MEDS: predniSONE 20 MG TABLET PO SCH (08:26)
[2023-02-08] MEDS: ENOXAPARIN 40 MG/0.4 ML SYRINGE SQ SCH (08:26)
[2023-02-08] MEDS: IPRATROPIUM/ALBUTEROL 3 ML AMPUL.NEB NEB SCH ×3 (09:10→21:06)
[2023-02-08] MEDS: cefTRIAXone 1 GM VIAL IV SCH (13:37)
[2023-02-08] MEDS: ACETAMINOPHEN 325 MG TABLET PO PRN (17:29)
[2023-02-08] MEDS: MAG HYDROX/AL HYDROX/SIMETH 30 ML ORAL.SUSP PO PRN (20:05)
[2023-02-09] MEDS: 0.9 % SODIUM CHLORIDE 10 ML SYRINGE IV SCH ×3 (06:03→20:31)
[2023-02-09 07:47] LABS: Basophils # (Auto) 0.01 K/mcL (0.00-0.30); Basophils % (Auto) 0.1 % (0.0-2.0); Eosinophils # (Auto) 0.17 K/mcL (0.00-0.70); Eosinophils % (Auto) 1.8 % (0.0-7.0); Hematocrit 37.9 % (40.1-51.0); Lymphocytes # (Auto) 1.49 K/mcL (1.50-4.80); Lymphocytes % (Auto) 15.4 % (15.5-49.0); Mean Cell Volume 93.6 fL (80.0-100.0); Mean Corpuscular HGB Conc 34.3 g/dL (31.0-36.0); Monocytes # (Auto) 1.17 K/mcL (0.10-0.90); Monocytes % (Auto) 12.1 % (1.0-12.0); Neutrophils % (Auto) 69.7 % (38.0-78.0); Platelet Count 430 K/mcL (140-440); RBC 4.05 M/mcL (4.63-6.08); Red Cell Distribution Width 11.8 % (11.5-14.5); WBC 9.7 K/mcL (4.5-11.0)
[2023-02-09] MEDS: predniSONE 20 MG TABLET PO SCH (07:53)
[2023-02-09 07:54] LABS: ALT/SGPT 10 U/L (<40); AST/SGOT 19 U/L (<40); Albumin 3.3 gm/dL (3.2-5.2); Albumin/Globulin Ratio 1.1 (1.0-2.3); Alkaline Phosphatase 51 U/L (39-117); Bilirubin,Total 0.6 mg/dL (0.1-1.0); Blood Urea Nitrogen 12 mg/dL (8-23); Calcium 8.6 mg/dL (8.6-10.4); Carbon Dioxide 32 mmol/L (22-30); Chloride 86 mmol/L (96-108); Globulin 3.1 gm/dL (2.2-3.7); Glomerular Filtration Rate 122; Glucose 107 mg/dL (70-105)
[2023-02-09] MEDS: IPRATROPIUM/ALBUTEROL 3 ML AMPUL.NEB NEB SCH ×3 (09:15→21:04)
[2023-02-09] MEDS: ENOXAPARIN 40 MG/0.4 ML SYRINGE SQ SCH (10:03)
[2023-02-09] MEDS: cefTRIAXone 1 GM VIAL IV SCH (15:21)
[2023-02-09] MEDS: MAG HYDROX/AL HYDROX/SIMETH 30 ML ORAL.SUSP PO PRN (20:31)
[2023-02-10] MEDS: 0.9 % SODIUM CHLORIDE 10 ML SYRINGE IV SCH ×3 (05:39→21:52)
[2023-02-10 06:45] LABS: Basophils # (Auto) 0.01 K/mcL (0.00-0.30); Basophils % (Auto) 0.1 % (0.0-2.0); Eosinophils # (Auto) 0.21 K/mcL (0.00-0.70); Eosinophils % (Auto) 2.1 % (0.0-7.0); Hematocrit 36.8 % (40.1-51.0); Hemoglobin 12.5 g/dL (13.7-17.5); Lymphocytes # (Auto) 1.66 K/mcL (1.50-4.80); Lymphocytes % (Auto) 16.7 % (15.5-49.0); Mean Cell Volume 93.6 fL (80.0-100.0); Mean Platelet Volume 8.7 fL (8.8-12.5); Monocytes # (Auto) 1.07 K/mcL (0.10-0.90); Monocytes % (Auto) 10.8 % (1.0-12.0); Neutrophils % (Auto) 69.1 % (38.0-78.0); Platelet Count 468 K/mcL (140-440); RBC 3.93 M/mcL (4.63-6.08); Red Cell Distribution Width 11.9 % (11.5-14.5); WBC 9.9 K/mcL (4.5-11.0)
[2023-02-10 07:14] LABS: ALT/SGPT 11 U/L (<40); AST/SGOT 18 U/L (<40); Albumin 3.4 gm/dL (3.2-5.2); Albumin/Globulin Ratio 1.1 (1.0-2.3); Alkaline Phosphatase 49 U/L (39-117); Bilirubin,Total 0.5 mg/dL (0.1-1.0); Blood Urea Nitrogen 12 mg/dL (8-23); Calcium 8.8 mg/dL (8.6-10.4); Carbon Dioxide 33 mmol/L (22-30); Chloride 85 mmol/L (96-108); Glomerular Filtration Rate 122; Glucose 115 mg/dL (70-105)
[2023-02-10] MEDS: IPRATROPIUM/ALBUTEROL 3 ML AMPUL.NEB NEB SCH ×3 (07:53→21:20)
[2023-02-10] MEDS: predniSONE 20 MG TABLET PO SCH (08:37)
[2023-02-10] MEDS: oxyCODONE/APAP 5/325MG TABLET PO PRN ×3 (08:37→21:51)
[2023-02-10] MEDS: ENOXAPARIN 40 MG/0.4 ML SYRINGE SQ SCH (08:38)
[2023-02-10] MEDS ORDERED: SODIUM CHLORIDE 1 GM TABLET PO ONE (13:50)
[2023-02-10] MEDS: SODIUM CHLORIDE 1 GM TABLET PO SCH ×2 (15:18→21:51)
[2023-02-10] MEDS: cefTRIAXone 1 GM VIAL IV SCH (15:18)
[2023-02-10] MEDS: MAG HYDROX/AL HYDROX/SIMETH 30 ML ORAL.SUSP PO PRN (21:52)
[2023-02-11] MEDS: 0.9 % SODIUM CHLORIDE 10 ML SYRINGE IV SCH ×3 (06:41→21:50)
[2023-02-11 07:27] LABS: ALT/SGPT 13 U/L (<40); AST/SGOT 23 U/L (<40); Albumin 3.4 gm/dL (3.2-5.2); Albumin/Globulin Ratio 1.2 (1.0-2.3); Alkaline Phosphatase 48 U/L (39-117); Bilirubin,Direct < 0.2 mg/dL (0-0.3); Bilirubin,Total 0.4 mg/dL (0.1-1.0); Blood Urea Nitrogen 12 mg/dL (8-23); Calcium 8.8 mg/dL (8.6-10.4); Carbon Dioxide 36 mmol/L (22-30); Chloride 88 mmol/L (96-108); Globulin 2.9 gm/dL (2.2-3.7); Glomerular Filtration Rate 111; Glucose 95 mg/dL (70-105); Lactate Dehydrogenase 158 U/L (135-225); Phosphorous 3.6 mg/dL (2.5-4.5); Triglycerides 52 mg/dL (<150); Uric Acid 2.1 mg/dL (2.5-8.0)
[2023-02-11] MEDS: IPRATROPIUM/ALBUTEROL 3 ML AMPUL.NEB NEB SCH ×3 (07:40→20:04)
[2023-02-11] MEDS: ENOXAPARIN 40 MG/0.4 ML SYRINGE SQ SCH (08:11)
[2023-02-11] MEDS: SODIUM CHLORIDE 1 GM TABLET PO SCH ×3 (08:11→21:51)
[2023-02-11] MEDS: predniSONE 20 MG TABLET PO SCH (08:11)
[2023-02-11] MEDS ORDERED: SODIUM CHLORIDE 1 GM TABLET PO ONE (08:41)
[2023-02-11] MEDS: cefTRIAXone 1 GM VIAL IV SCH (14:10)
[2023-02-11] MEDS: ACETAMINOPHEN 325 MG TABLET PO PRN (21:51)
[2023-02-11] MEDS: MAG HYDROX/AL HYDROX/SIMETH 30 ML ORAL.SUSP PO PRN (22:29)
[2023-02-12] MEDS: 0.9 % SODIUM CHLORIDE 10 ML SYRINGE IV SCH ×2 (06:33→13:03)
[2023-02-12 07:12] LABS: ALT/SGPT 20 U/L (<40); AST/SGOT 29 U/L (<40); Albumin 3.3 gm/dL (3.2-5.2); Albumin/Globulin Ratio 1.2 (1.0-2.3); Alkaline Phosphatase 47 U/L (39-117); Bilirubin,Direct < 0.2 mg/dL (0-0.3); Bilirubin,Total 0.4 mg/dL (0.1-1.0); Blood Urea Nitrogen 16 mg/dL (8-23); Calcium 8.6 mg/dL (8.6-10.4); Carbon Dioxide 34 mmol/L (22-30); Chloride 89 mmol/L (96-108); Globulin 2.7 gm/dL (2.2-3.7); Glomerular Filtration Rate 111; Glucose 91 mg/dL (70-105); Lactate Dehydrogenase 169 U/L (135-225); Phosphorous 3.5 mg/dL (2.5-4.5); Triglycerides 54 mg/dL (<150); Uric Acid 2.3 mg/dL (2.5-8.0)
[2023-02-12] MEDS ORDERED: predniSONE 20 MG TABLET PO SCH (08:00)
[2023-02-12] MEDS: SODIUM CHLORIDE 1 GM TABLET PO SCH (08:48)
[2023-02-12] MEDS: ENOXAPARIN 40 MG/0.4 ML SYRINGE SQ SCH (08:48)
[2023-02-12] MEDS: IPRATROPIUM/ALBUTEROL 3 ML AMPUL.NEB NEB SCH ×2 (10:26→14:15)
== END 2023-02-12 15:14 | disposition home or self-care (01) | DRG 190 ==
LOC: ED 08:21 → MEDSUR 13:47
PROVIDERS: ADMIT Internal Medicine; ATTEND Internal Medicine